=== PATIENT | female | born 1995 | race Caucasian/White ===

== ENCOUNTER 2017-04-21 22:26 | Emergency (ER) | payer MEDICAID ==
[~2017-04-21] VITALS: Ht 157.5 cm; Wt 49.9 kg
[2017-04-21] MEDS ORDERED: LANTUS SOL100 UNIT/1 SUBQ (23:20)
--- NOTE | 2017-04-21 23:20 | Emergency Room Report ---
History of Present Illness General Chief Complaint: Medication Refill Source: Patient Present Illness HPI This is a 22-year-old female who is insulin-dependent. She recently immigrated from [place]. She is almost out of her insulin. She only have a day or 2 left. She presents with chief complaint of needing insulin. She is in the process of getting referred to see a specialist. Allergies: Coded Allergies: IBUPROFEN (Verified Allergy, Intermediate, 04/21/17) LIDOCAINE (Verified Allergy, Intermediate, 04/21/17) Patient History Past Medical History: see triage record, old chart reviewed, DM Past Surgical History: none Pertinent Family History: none Social History: Denies: smoking Now: No Immunizations: other Reviewed Nursing Documentation: PMH: Agreed, PSxH: Agreed Nursing Documentation-PMH Hx Diabetes: Yes Review of Systems Eye: Denies: eye pain, blurred vision ENT: Denies: ear pain, nose congestion, throat swelling Respiratory: Denies: cough, shortness of breath Cardiovascular: Denies: chest pain, palpitations Gastrointestinal: Denies: abdominal pain, diarrhea, nausea, vomiting Musculoskeletal: Denies: back pain, joint pain Skin: Denies: rash Neurological: Denies: headache, numbness Endocrine: Denies: increased thirst, increased urine Hematologic/Lymphatic: Denies: easy bruising All Other Systems: negative except mentioned in HPI Physical Exam Vital Signs Date Time Temp Pulse Resp B/P (MAP) Pulse Ox O2 Delivery O2 Flow Rate FiO2 04/21/17 22:33 97.9 86 16 110/60 98 Room Air vitals normal Sp02 EP Interpretation: reviewed, normal General Appearance: well appearing, no apparent distress, alert Head: normocephalic, atraumatic Eyes: bilateral eye PERRL, bilateral eye EOMI ENT: hearing grossly normal, normal pharynx Neck: full range of motion, supple, no meningismus Respiratory: chest non-tender, lungs clear, normal breath sounds Cardiovascular #1: regular rate, rhythm, no murmur Gastrointestinal: normal bowel sounds, non tender, no mass, no organomegaly, no bruit, non-distended Musculoskeletal: back normal, gait/station normal, normal range of motion Psychiatric: mood/affect normal Skin: warm/dry Medical Decision Making Diagnostic Impression: Primary Impression: Encounter for medication refill Additional Impression: Hyperglycemia due to type 1 diabetes mellitus ER Course Patient presents with hyperglycemia. Will refill her medication with similar insulin here. She is on insulin that is not available in the [place]. Last Vital Signs Date Time Temp Pulse Resp B/P (MAP) Pulse Ox O2 Delivery O2 Flow Rate FiO2 04/21/17 22:33 97.9 86 16 110/60 98 Room Air Status: unchanged Disposition: HOME, SELF-CARE Condition: Stable Scripts Insuln Asp Prt/Insulin Aspart (NOVOLOG MIX 70-30 FLEXPEN SYRN) 100 Unit/1 Ml Insuln.pen 18 UNIT SQ BID, #1 EA Prov: LEVAR ELENA M.D. 04/21/17 Insulin Glargine (LANTUS) 100 Unit/1 Ml Insuln.pen 18 UNITS SUBQ BID, #1 EA 0 Refills Prov: LEVAR ELENA M.D. 04/21/17 Patient Instructions: Medicine Refill at the Emergency Department Additional Instructions: Followup in the clinic in 7 days. Return if symptom worsen. LEVAR ELENA M.D. Apr 21, 2017 23:20
[2017-04-21] MEDS ORDERED: NOVOLOG MI100 UNIT/3 SQ (23:24)
[2017-04-21 23:46] VITALS: BP 110/60
[2017-04-21 23:47] VITALS: BP 1/1
== END 2017-04-21 23:40 | disposition home or self-care (01) ==
LOC: EMR 22:55
DX: Z76.0 Encounter for issue of repeat prescription (principal); E10.65 Type 1 diabetes mellitus with hyperglycemia; Z79.4 Long term (current) use of insulin; Z88.6 Allergy status to analgesic agent
CPT/HCPCS: 82962; 99284